=== PATIENT | female | born 1965 | race Caucasian/White ===

== ENCOUNTER 2020-11-25 08:21 | Emergency (ER) | payer OTHER ==
[~2020-11-25] VITALS: Ht 162.6 cm; Wt 79.4 kg
[~2020-11-25 08:21] MED LIST: LISI2.5T14
[2020-11-25 08:24] VITALS: BP 137/80
--- NOTE | 2020-11-25 08:29 | NUR ---
patient ambulated to bed 9, steady gait.
--- NOTE | 2020-11-25 08:30 | NUR ---
55 FEMALE BIBS WITH C/O HEADACHE AND EPIGASTRIC PAIN X 2 DAYS WITH NAUSEA AND DIARRHEA, DENIES VOMITING. HEADACHE PAIN 10/10 THAT RADIATES TO BACK, IS CONSTANT AND DESCRIBES PRESSURE THAT STARTED YESTERDAY. DIARRHEA W/O BLOOD/DENIES BLACK STOOL. EPIGASTRIC PAIN 8/10, DESCRIBES BURNING. PATIENT DENIES CHEST PAIN, SOB, FEVER, CHILLS, PAIN DURING URINATION. NO MEDS TAKEN TODAY, TOOK MOTRIN YESTERDAY THAT PROVIDED NO RELIEF. BS ACTIVE X4Q, TENDER TO PALPATION. SKIN DRY AND INTACT, NO BRUISING/DISCOLORATION. PATIENT PLACED IN GOWN, CONNECTED TO MONITOR, VSS, A&OX4, RR EVEN AND UNLABORED. PHX DENIES ALLERGIES DENIES
--- NOTE | 2020-11-25 08:36 | NUR ---
Dr Oro at bedside evaluating patient.
[2020-11-25] MEDS ORDERED: KETOROLAC 60 MG/2 ML VIAL IM ONE (08:45)
[2020-11-25] MEDS ORDERED: ONDANSETRON 4 MG ODT PO ONE (08:45)
[2020-11-25] MEDS ORDERED: MORPHINE SULFATE 4 MG/ML SYR IM ONE (09:10)
--- NOTE | 2020-11-25 09:41 | NUR ---
PATIENT REFUSED MORPHINE 4MG ORDERED BY FOR C/O PAIN. MD SHAY MADE AWARE; JASPAL CAME TO BEDSIDE TO DISCUSS OTHER OPTIONS OF PAIN MANAGEMENT FOR DISCHARGE, PT AGREED FOR PRESCRIPTION OF NORCO.
[2020-11-25] MEDS ORDERED: OMEP40EC24 PO (09:57)
[2020-11-25] MEDS ORDERED: IBUP-2213 PO (09:57)
[2020-11-25] MEDS ORDERED: ONDA8TAB87 PO (09:57)
[2020-11-25] MEDS ORDERED: ACET-8386 PO (09:57)
--- NOTE | 2020-11-25 10:08 | NUR ---
PT EXITED THE ER WITHOUT NOTIFYING NURSE AND WITHOUT DISCHARGE PAPERWORK. PTS RETURNED TO ER UPSET AND YELLING ABOUT THE CARE RECEIVED. PTS WAS YELLING AND CURSING AT THE ADMITTING STAFF. PT UPSET THAT HE WAS NOT ABLE TO BE BEDSIDE WITH , ADMITTING INFORMED HIM THAT WITHOUT VACCINATION PROOF, HE IS NOT ABLE TO COME BACK. SECURITY WAS CALLED AND PRESENT DURING ENCOUNTER. I EXPLAINED TO THE PTS THAT IF THE PATIENT HAS FURTHER QUESTIONS ABOUT CARE OR MEDICATIONS PROVIDED, SHE WOULD NEED TO SPEAK WITH THE DOCTOR BACK IN THE ROOM. REFUSED AND ONLY REQUESTED PAPERWORK. PT WAS GIVEN COPY OF MEDICATIONS ADMINISTERED IN ER ALONG WITH DICHARGE PAPERWORK. PT ADVISED TO FOLLOW UP WITH PCP.
--- NOTE | 2020-11-25 10:09 | NUR ---
Patient discharged with v/s stable. Written and verbal after care instructions about general headache without cause, and abdominal pain given and explained. Patient alert, oriented and verbalized understanding of instructions. Ambulatory with steady gait. All questions addressed prior to discharge. ID band removed. Patient advised to follow up with PMD. Rx of norco, ibuprofen, omeprazole, and zofran given. Patient educated on indication of medication including possible reaction and side effects. Opportunity to ask questions provided and answered.
== END 2020-11-25 10:09 | disposition home or self-care (01) ==
LOC: MED 08:21
DX: R10.13 Epigastric pain (principal); R19.7 Diarrhea, unspecified; R51.9 Headache, unspecified; R11.0 Nausea; Z79.899 Other long term (current) drug therapy
CPT/HCPCS: 81002; 81025; 96372; 99283; J1885; Q0162; J2270